=== PATIENT | male | born 1995 | race Caucasian/White ===

== ENCOUNTER 2023-08-16 11:08 | Inpatient (IN) | payer OTHER ==
[2023-08-16 12:22] VITALS: BMI 23.3
[2023-08-16] MEDS ORDERED: IBUPROFEN 400 MG TABLET (FP) PO PRN (13:10)
[2023-08-16] MEDS ORDERED: MAGNESIUM HYDROX 2400MG/30ML ORAL SUSPENSION 30 ML CUP PO PRN (13:10)
[2023-08-16] MEDS ORDERED: BENZONATATE 200 MG CAPSULE PO PRN (13:10)
[2023-08-16] MEDS ORDERED: METHOCARBAMOL 500 MG TABLET PO PRN (13:10)
[2023-08-16] MEDS ORDERED: DICYCLOMINE HCL 10 MG CAPSULE PO PRN (13:10)
[2023-08-16] MEDS ORDERED: ACETAMINOPHEN 325 MG TABLET (FP) PO PRN (13:10)
[2023-08-16] MEDS ORDERED: BENZOCAINE/MENTHOL (CHLORASEPTIC ) LOZENGE MM PRN (13:10)
[2023-08-16] MEDS ORDERED: LOPERAMIDE HCL 2 MG CAPSULE PO PRN (13:10)
[2023-08-16] MEDS ORDERED: MAG HYDROX/AL HYDROX/SIMETH 30 ML UNIT-DOSE CUP PO PRN (13:10)
[2023-08-16] MEDS ORDERED: guaiFENesin 600 MG TABLET.ER (FP) PO PRN (13:10)
[2023-08-16] MEDS ORDERED: BISMUTH SUBSALICYLATE 262 MG/15 ML BTL PO PRN (13:10)
[2023-08-16] MEDS ORDERED: IBUPROFEN 600 MG TABLET (FP) PO PRN (13:10)
[2023-08-16] MEDS ORDERED: hydrOXYzine PAMOATE 25 MG CAPSULE (FP) PO PRN (13:10)
[2023-08-16] MEDS ORDERED: POLYETHYLENE GLYCOL (HEALTHYLAX) 3350 17 GM PACKET PO PRN (13:10)
[2023-08-16] MEDS: ONDANSETRON *ODT* 4 MG TABLET SL PRN (19:32)
[2023-08-16] MEDS ORDERED: diazePAM 5 MG TABLET PO PRN (20:33)
[2023-08-16] MEDS: diazePAM 5 MG TABLET PO ONE ×2 (22:00→22:03)
[2023-08-16] MEDS: MELATONIN 5 MG TABLETS PO SCH (22:01)
[2023-08-16] MEDS: THIAMINE 100 MG TABLET PO SCH (22:01)
[2023-08-16] MEDS: diazePAM 5 MG TABLET PO SCH (22:04)
[2023-08-17 09:13] VITALS: RESP 18
[2023-08-17] MEDS: PRENATAL VITAMINS W/ FOLIC ACID TABLET (FP) PO SCH (10:19)
[2023-08-17 12:42] VITALS: BP 120/78; PULSE 79; TEMP 98.7
[2023-08-17 14:39] LABS: HEMOGLOBIN 14.6 GM/dL (11.7-16.9); MCH 31.8 pg (25.7-33.7); MCHC 33.9 g/dl (32.0-35.9); MEAN CELL VOLUME 93.7 fl (80-96); MEAN PLT VOLUME 6.9 fl (7.5-11.1); PLATELET COUNT 261 10^3/uL (134-434); RBC 4.59 M/mm3 (4.00-5.60); RDW 14.8 % (11.9-15.9); WHITE BLOOD COUNT 5.9 K/mm3 (4.0-10.0)
[2023-08-17 14:56] LABS: POTASSIUM 4.1 mmol/L (3.5-5.1)
[2023-08-17 15:03] LABS: CALCIUM 9.7 mg/dL (8.5-10.1)
[2023-08-17 15:04] LABS: BLOOD UREA NITROGEN 7.8 mg/dL (7-18)
[2023-08-17 15:06] LABS: CREATININE 0.8 mg/dL (0.55-1.3)
[2023-08-17 15:08] LABS: BILIRUBIN,TOTAL 0.7 mg/dL (0.2-1); TOT PROT 7.9 g/dl (6.4-8.2)
[2023-08-18] MEDS ORDERED: diazePAM 5 MG TABLET PO SCH (06:00)
[2023-08-19] MEDS ORDERED: diazePAM 5 MG TABLET PO SCH (06:00)
[2023-08-20] MEDS ORDERED: diazePAM 5 MG TABLET PO ONE (06:00)
== END 2023-08-17 13:36 | disposition left against medical advice (07) | DRG 770 ==
LOC: YASAS 11:08 → Y3N 14:40
PROVIDERS: ADMIT Allergy & Immunology; ATTEND Surgery
PROC: HZ2ZZZZ Detoxification Services for Substance Abuse Treatment (ICD-10-PCS; principal; 2023-08-16)
DX: F10.20 Alcohol dependence, uncomplicated (principal)
CPT/HCPCS: 36415; 80053; 80305; 85027; 86780; 93005; 93010; Q0162